=== PATIENT | female | born 1990 | race Caucasian/White ===

== ENCOUNTER 2020-07-25 07:26 | Outpatient (RCR) | payer BC ==
[~2020-07-25] VITALS: Ht 157.5 cm; Wt 72.7 kg
[2020-07-25] MEDS ORDERED: DULO60CA6 PO (12:51)
[2020-07-25] MEDS ORDERED: LORA-405 PO (12:51)
[2020-07-25] MEDS ORDERED: DICL75TA2 PO (12:51)
== END 2020-07-25 13:13 | disposition home or self-care (01) ==
LOC: PREOP 07:26
PROVIDERS: ATTEND Obstetrics & Gynecology
DX: Z01.812 Encounter for preprocedural laboratory examination (principal); N80.9 Endometriosis, unspecified

== ENCOUNTER 2020-08-02 10:10 | Day surgery (SDC) | payer BC ==
[~2020-08-02] VITALS: Ht 157.5 cm; Wt 72.7 kg
[2020-08-02] VITALS (12 sets, daily range): BP systolic 101–121; BP diastolic 55–86
[~2020-08-02 10:10] MED LIST: DICL75TA2 PO; DULO60CA6 PO; LORA-405 PO
[2020-08-02] MEDS ORDERED: LIDOCAINE/EPI 1%-1:100,000 (XYLOCAINE) 20ML ONE (10:40)
[2020-08-02] MEDS ORDERED: ceFAZolin INJECTION 1,000 MG in WATER (STERILE) FOR INJECTION 10 ML IV ONE (10:45)
[2020-08-02] MEDS: LACTATED RINGERS 1,000 ML IV PRN ×3 (11:03→16:20)
[2020-08-02 11:15] LABS: BASOPHILS % (AUTO) 0 % (0-10); EOSINOPHILS % (AUTO) 1 % (0-10); HEMATOCRIT 37 % (35-52); HEMOGLOBIN 12.5 g/dL (11.5-16.0); LYMPHOCYTES # (AUTO) 2.3 10^3/uL (1.0-4.0); LYMPHOCYTES % (AUTO) 33 % (12-44); MEAN CORPUSCULAR HEMOGLOBIN 30 pg (25-34); MEAN CORPUSCULAR HGB CONC 34 g/dL (32-36); MEAN CORPUSCULAR VOLUME 88 fL (80-99); MEAN PLATELET VOLUME 9.5 fL (9.0-12.2); MONOCYTES # (AUTO) 0.4 10^3/uL (0.0-1.0); MONOCYTES % (AUTO) 7 % (0-12); NEUTROPHILS % (AUTO) 59 % (42-75); PLATELET COUNT 244 10^3/uL (130-400); WHITE BLOOD COUNT 6.7 10^3/uL (4.3-11.0)
[2020-08-02] MEDS ORDERED: MIDAZOLAM 2 MG/2 ML (VERSED) VIAL IV ONE (11:15)
[2020-08-02] MEDS ORDERED: fentaNYL INJECTION 100 MCG/2 ML AMP ONE (11:20)
[2020-08-02] MEDS ORDERED: MIDAZOLAM 2 MG/2 ML (VERSED) VIAL ONE (11:20)
[2020-08-02] MEDS ORDERED: ONDANSETRON 4 MG/2 ML (SDV) Z0FRAN ONE (11:28)
[2020-08-02] MEDS ORDERED: NEOSTIGMINE 3 MG/3 ML VIAL ONE (11:28)
[2020-08-02] MEDS ORDERED: ROCURONIUM 10 MG/ML 5 ML SYRINGE IV ONE (11:28)
[2020-08-02] MEDS ORDERED: SEVOFLURANE (ULTANE) 15 ML INHAL SOLN ONE ×2 (11:28→14:25)
[2020-08-02] MEDS ORDERED: LIDOCAINE PF 2% 5 ML (XYLOCAINE) VIAL ONE (11:28)
[2020-08-02] MEDS ORDERED: proPOfol 200 MG/20 ML (DIPRIVAN) VIAL IV ONE (11:28)
[2020-08-02] MEDS ORDERED: GLYCOPYRROLATE 0.2 MG/ML (ROBINUL) 2 ML VIAL ONE ×2 (11:28→14:08)
[2020-08-02] MEDS ORDERED: ONDANSETRON 4 MG/2 ML (SDV) Z0FRAN IVP PRN ×3 (12:30→14:30)
[2020-08-02] MEDS ORDERED: HYDROmorphone 2 MG/ML VIAL (DILAUDID) IV ONE ×2 (12:30→14:30)
[2020-08-02] MEDS ORDERED: morphine INJ 10 MG/ML 1ML (SYR OR VIAL) IVP ONE ×2 (12:30→14:30)
--- NOTE | 2020-08-02 13:10 | Progress Note-Pre Operative ---
Pre-Operative Progress Note H&P Reviewed The H&P was reviewed, patient examined and no changes noted. Date Seen by Provider: Aug 02, 2020 Time Seen by Provider: 13:09 Date H&P Reviewed: Aug 02, 2020 Time H&P Reviewed: 13:09 Pre-Operative Diagnosis: Dysfunctional uterine bleeding/chronic pelvic pain/undesired SYDNIE COTTRELL MD Aug 02, 2020 13:10
--- NOTE | 2020-08-02 13:11 | Progress Note-Post Operative ---
Post-Operative Progess Note Surgeon (s)/Bankruptcy Attorney (s) Surgeon SYDNIE WAGONER MD Bankruptcy Attorney: Cathy Bee Pre-Operative Diagnosis Dysfunctional uterine bleeding/chronic pelvic pain/undesired NEXPLANON Post-Operative Diagnosis Same Procedure & Operative Findings Date of Procedure 08/02/20 Procedure Performed/Findings D&C/laparoscopy for treatment of endometriosis/removal of Nexplanon//Laparoscopic appendectomy /laparoscopic adhesiolysis/Aspiration of the left ovarian cyst Anesthesia Type GETA Estimated Blood Loss Estimated blood loss (mL): Minimal Specimens/Packing Specimens Removed Nexplanon from left posterior bicep/ Endometrial curetting/appendix SYDNIE WAGONER MD Aug 02, 2020 13:11
[2020-08-02] MEDS ORDERED: IBUP-1780 PO (13:13)
[2020-08-02] MEDS ORDERED: OXYC1TAB87 PO (13:13)
--- NOTE | 2020-08-02 13:14 | Discharge Inst-Surgical ---
Discharge Inst-Surgical Depart Medication/Instructions New, Converted or Re-Newed RX: RX on Chart Consults/Follow Up Patient Instructions: As directed Orders & Referrals Follow Up Appt: Call to make follow up appt. for patient in 1 week For follow-up and suture removal Activity: Rest for 24 hours, than as tolerated. Wound Care: May remove Band-Aid tomorrow. Replace as desired. Keep incisions clean and dry. Wash daily with soap and water. Please call in RX to patient pharmacy. Diet: As tolerated- shower or tub bathe as desired. No driving for 24 hours, no alcoholic beverages for 24 hours, and nothing per vagina (no tampons, douching, or intercoarse) for 2 weeks. Patient to return to the clinic as soon as possible for: Temperature greater kayla n 101F, Severe Pain, Foul discharge from incision or vagina, Excessive Bleeding (more than a period). Activity Activity as Tolerated: No Diet Discharge Diet: No Restrictions SYDNIE WAGONER MD Aug 02, 2020 13:14
[2020-08-02] MEDS ORDERED: PROMETHAZINE INJ 25 MG/ML (PHENERGAN) AMP IM ONE (13:15)
[2020-08-02] MEDS ORDERED: fentaNYL INJECTION 100 MCG/2 ML AMP IVP PRN (13:15)
[2020-08-02] MEDS ORDERED: KETOROLAC 30 MG/ML VIAL IVP ONE (13:15)
[2020-08-02] MEDS ORDERED: ESTROGENS CONJ INJECTION 25 MG in WATER (STERILE) FOR INJECTION 5 ML IV ONE (13:15)
[2020-08-02] MEDS ORDERED: D5 LR IV SOLUTION 1,000 ML IV SCH (13:15)
[2020-08-02] MEDS ORDERED: HYDROmorphone 2 MG/ML VIAL (DILAUDID) ONE (13:38)
[2020-08-02] MEDS ORDERED: KETOROLAC 30 MG/ML VIAL ONE (13:52)
[2020-08-02] MEDS ORDERED: ESTROGENS CONJ IV 25 MG/5 ML (PREMARIN) VIAL ONE (13:52)
[2020-08-02] MEDS ORDERED: WATER (STERILE) FOR INJECTION 10 ML ONE (13:52)
--- NOTE | 2020-08-02 15:31 | Anesthesia-General Post-Op ---
General Patient Condition Mental Status/LOC: Same as Preop Cardiovascular: Satisfactory Nausea/Vomiting: Absent Respiratory: Satisfactory Pain: Controlled Complications: Absent Post Op Complications Complications None Follow Up Care/Instructions Patient Instructions None needed. Anesthesia/Patient Condition Patient Condition Patient is doing well, no complaints, stable vital signs, no apparent adverse anesthesia problems. FELA DECKER DO Aug 02, 2020 15:31
--- NOTE | 2020-08-02 15:35 | NUR ---
PT ATTEMPTED TO STAND TO WALK TO BATHROOM. MIN BLOODY VAGINAL DRAINAGE NOTED. PT C/O DIZZINESS, NAUSEA. PT ASSISTED BACK TO BED.
[2020-08-02] MEDS ORDERED: ONDANSETRON 4 MG/2 ML (SDV) Z0FRAN IVP ONE (16:15)
--- NOTE | 2020-08-02 23:22 | OPERATIVE REPORT ---
DATE OF SERVICE: 08/02/2020 PREOPERATIVE DIAGNOSES: Dysfunctional uterine bleeding, pelvic pain and Nexplanon she no longer desired. POSTOPERATIVE DIAGNOSES: Dysfunctional uterine bleeding, pelvic pain and Nexplanon she no longer desired. OPERATIVE PROCEDURE: Removal of Nexplanon from the left medial biceps as well as D and C with laparoscopy for treatment of endometriosis, destruction and removal as well as aspiration of left ovarian cyst, adhesiolysis and laparoscopic appendectomy. OPERATIVE DESCRIPTION: With the patient in the supine position under satisfactory general anesthesia, she was repositioned in dorsal lithotomy position in the [facility] and prepped and draped in the usual fashion for abdominal and vaginal surgery. The urinary bladder was drained with a straight catheter. A weighted speculum placed in posterior fornix of vagina, cervix exposed and grasped anteriorly with single tooth tenaculum. Uterus sounded to 11 cm with uterine sound. Cervix was then serially dilated with Ben dilators to accommodate an 8 mm curette. The endometrial cavity was then curettaged in all 4 quadrants to a good uterine cry. That tissue was sent to pathology as endometrial curettings. A uterine manipulator was now placed and the bulb filled with 6 mL of air. The tenaculum and speculum were removed. The patient brought in low dorsal lithotomy position. A 5 mm incision was made at [place]. Veress needle was placed through that incision into the abdominal cavity and correct placement confirmed with water drop test. The abdomen was insufflated with 2.4 liters of carbon dioxide and the Veress needle was removed and replaced with a 5 mm Optiview laparoscopic/endoscopic port. The patient was placed in Trendelenburg allowing the bowel spill out of the pelvis. The abdominal wall transilluminated and ports of 12 mm and 5 mm were placed infraumbilically and suprapubically through incisions of those sizes. All incision sites were infiltrated with 0.25% Marcaine with epinephrine prior to incision. The pelvis was first examined. There were endometriosis implants, particularly in the cul-de-sac and on the left ovarian fossa. Both fallopian tubes were adherent over the round ligament on their respective sides to the broad ligament from the round ligament. There was endometriosis implants in the right ovarian fossa. There were endometriosis implants on the anterior abdominal wall near the cecum involving the end of the cecum and the appendix was somewhat tethered to that area as well. The appendix was essentially a vermiform appearing appendix, but it did appear to have some hemosiderin type deposits along the proximal third consistent with endometriosis. Decision was made to take out the appendix concurrent with rest of the procedure. The endometriosis implants in the cul-de-sac and in the ovarian fossa were touched with electrocautery to destroy them as were the endometriosis implants in both ovarian fossae. With the right side of the pelvis was addressed, then the right fallopian tube was released from its adhesions over the round ligament. There was a large simple cyst on the left ovary. This was fenestrated and straw yellow fluid was aspirated from it. There was nothing abnormal about that ovary. There were some endometriosis implants, still in the ovarian fossa on the left were touched with electrocautery and then the left fallopian tube was released from its adhesions of the round ligament as well. With the pelvis return to normal anatomy, the pelvis was irrigated and examined for hemostasis that being completed. Attention was turned to the appendix. The appendix was grasped and elevated. The mesoappendix was divided with electrocautery over to the base of the appendix ensuring hemostasis along the way. An Endo-TYLER was then placed across the base of appendix and fired, the appendix from its attachments. The appendix was placed in an Endobag and brought out through the umbilical port and sent to pathology for permanent section. The stump of the appendix was copiously irrigated and treated with several drops of Betadine solution. There was an endometriosis implant still on the anterior abdominal wall. This was sucked with electrocautery to destroy it. The cul-de-sac was irrigated and aspirated a final time. There was no bleeding. There was no abnormal remaining pathology. The procedure at this point was completed and terminated. The operative instruments were removed from the ports. The abdomen was evacuated of insufflating gas and all ports were removed under direct vision. No bleeding was noted. The skin incisions were closed with 3-0 nylon sutures. The fascia at the supraumbilical incision was closed with [id number] suture of 2-0 Vicryl. The uterine manipulator bulb was drained. The instruments were removed from the vagina. Speculum placed in vagina, cervix examined for hemostasis, which was complete. Sponge and needle counts were correct on completion of procedure. Blood loss was minimal. The patient tolerated the procedure well and was uneventfully awakened from her general anesthesia and transferred to the recovery room in stable condition with plans for discharge home PAR. Job ID: [id number] DocumentID: [id number] Dictated Date: 08/02/2020 15:06:50 Metal Pattern Maker Date: 08/02/2020 23:22:02 Dictated By: SYDNIE WAGONER MD
== END 2020-08-02 16:50 | disposition home or self-care (01) ==
LOC: SDC 10:10
PROVIDERS: ATTEND Obstetrics & Gynecology
DX: N93.8 Other specified abnormal uterine and vaginal bleeding (principal); N80.3 Endometriosis of pelvic peritoneum; N92.1 Excessive and frequent menstruation with irregular cycle; N94.12 Deep dyspareunia; N94.5 Secondary dysmenorrhea; F41.9 Anxiety disorder, unspecified; F32.9 Major depressive disorder, single episode, unspecified; Z79.899 Other long term (current) drug therapy; Z80.49 Family history of malignant neoplasm of other genital organs
CPT/HCPCS: 36415; 84703; 85025; 87081; 88304; 88305

== ENCOUNTER 2020-12-25 05:36 | Outpatient (CLI) | payer BC, OTHER ==
[~2020-12-25] VITALS: Ht 157.5 cm; Wt 81.8 kg
[~2020-12-25 05:36] MED LIST changes: +IBUP-1780 PO; +OXYC1TAB87 PO
[2020-12-25] MEDS ORDERED: DULO30CA3 PO (15:12)
[2020-12-25] MEDS ORDERED: HYDR-3584 PO (15:12)
== END 2020-12-25 15:15 | disposition home or self-care (01) ==
LOC: PREOP 05:36
PROVIDERS: ATTEND Obstetrics & Gynecology
DX: Z01.818 Encounter for other preprocedural examination (principal)

== ENCOUNTER 2021-01-01 10:55 | Day surgery (SDC) | payer BC, OTHER ==
[2021-01-01] VITALS (9 sets, daily range): BP systolic 108–130; BP diastolic 66–83
[~2021-01-01] VITALS: Ht 157.5 cm; Wt 81.8 kg
--- NOTE | 2021-01-01 09:29 | Progress Note-Post Operative ---
Post-Operative Progess Note Surgeon (s)/Switchboard Operator Supervisor (s) Surgeon SYDNIE WAGONER MD Switchboard Operator Supervisor: Billie Pre-Operative Diagnosis Chronic pelvic pain/recurrent endometriosis/menorrhagia Post-Operative Diagnosis Same with pathology pending Procedure & Operative Findings Date of Procedure 01/01/21 Procedure Performed/Findings Total laparoscopic hysterectomy with bilateral salpingectomy and Left- oophorectomy Anesthesia Type GETA Estimated Blood Loss Estimated blood loss (mL): minimal Specimens/Packing Specimens Removed Uterus fallopian tubes and Left ovary Packing: not required SYDNIE WAGONER MD January 01, 2021 09:29
--- NOTE | 2021-01-01 09:29 | Progress Note-Pre Operative ---
Pre-Operative Progress Note H&P Reviewed The H&P was reviewed, patient examined and no changes noted. Date Seen by Provider: January 01, 2021 Time Seen by Provider: 12:18 Date H&P Reviewed: January 01, 2021 Time H&P Reviewed: 12:18 Pre-Operative Diagnosis: Chronic pelvic pain/recurrent endometriosis/menorrhagia SYDNIE WAGONER MD January 01, 2021 09:29
--- NOTE | 2021-01-01 09:32 | Discharge Inst-Surgical ---
Discharge Inst-Surgical Depart Medication/Instructions New, Converted or Re-Newed RX: RX on Chart Consults/Follow Up Patient Instructions: As directed Orders & Referrals Follow Up Appt: Return to clinic on Wednesday, December 04, 2020 at 9:30 AM for staple removal Call to make follow up appt. for patient in 4 weeks. Activity: Rest for 24 hours, than as tolerated. Wound Care: May remove Band-Aid tomorrow. Replace as desired. Keep incisions clean and dry. Wash daily with soap and water. Please call in RX to patient pharmacy. Diet: As tolerated shower or tub bathe as desired. No driving for 24 hours, no alcoholic beverages for 24 hours, and nothing per vagina (no tampons, douching, or intercourse) for 8 weeks. Patient to return to the clinic as soon as possible for: Temperature greater than 101F, Severe Pain, Foul discharge from incision or vagina, Excessive Bleeding (more than a period). Activity Activity as Tolerated: No Diet Discharge Diet: No Restrictions SYDNIE WAGONER MD January 01, 2021 09:32
[~2021-01-01 10:55] MED LIST changes: +DOCU-143 PO; +DULO30CA3 PO; +HYDR-3584 PO
[2021-01-01] MEDS ORDERED: LIDOCAINE/EPI 1%-1:100,000 (XYLOCAINE) 20ML ONE (11:54)
[2021-01-01 12:00] LABS: BASOPHILS % (AUTO) 1 % (0-10); EOSINOPHILS # (AUTO) 0.1 10^3/uL (0.0-0.3); EOSINOPHILS % (AUTO) 1 % (0-10); HEMATOCRIT 39 % (35-52); HEMOGLOBIN 13.2 g/dL (11.5-16.0); LYMPHOCYTES # (AUTO) 2.6 10^3/uL (1.0-4.0); LYMPHOCYTES % (AUTO) 40 % (12-44); MEAN CORPUSCULAR HEMOGLOBIN 30 pg (25-34); MEAN CORPUSCULAR HGB CONC 34 g/dL (32-36); MEAN CORPUSCULAR VOLUME 87 fL (80-99); MEAN PLATELET VOLUME 9.4 fL (9.0-12.2); MONOCYTES # (AUTO) 0.5 10^3/uL (0.0-1.0); MONOCYTES % (AUTO) 7 % (0-12); NEUTROPHILS # (AUTO) 3.3 10^3/uL (1.8-7.8); NEUTROPHILS % (AUTO) 51 % (42-75); PLATELET COUNT 264 10^3/uL (130-400); WHITE BLOOD COUNT 6.5 10^3/uL (4.3-11.0)
[2021-01-01] MEDS ORDERED: ceFAZolin INJECTION 1,000 MG ONE (12:18)
[2021-01-01] MEDS ORDERED: WATER (STERILE) FOR INJECTION 10 ML ONE (12:18)
[2021-01-01] MEDS ORDERED: MIDAZOLAM 2 MG/2 ML (VERSED) VIAL ONE (12:20)
[2021-01-01] MEDS ORDERED: LACTATED RINGERS 1,000 ML IV ONE (12:20)
[2021-01-01] MEDS ORDERED: proPOfol 200 MG/20 ML (DIPRIVAN) VIAL IV ONE (12:20)
[2021-01-01] MEDS ORDERED: LIDOCAINE PF 2% 5 ML (XYLOCAINE) VIAL ONE (12:20)
[2021-01-01] MEDS ORDERED: ROCURONIUM 10 MG/ML 5 ML SYRINGE IV ONE (12:20)
[2021-01-01] MEDS ORDERED: ONDANSETRON 4 MG/2 ML (SDV) Z0FRAN ONE ×2 (12:20→13:59)
[2021-01-01] MEDS ORDERED: fentaNYL INJ 100 MCG/2 ML AMP ONE ×2 (12:21→15:18)
[2021-01-01] MEDS ORDERED: ceFAZolin INJECTION 1,000 MG in WATER (STERILE) FOR INJECTION 10 ML IV ONE (13:15)
[2021-01-01] MEDS ORDERED: LACTATED RINGERS 1,000 ML IV PRN (13:15)
[2021-01-01] MEDS ORDERED: SEVOFLURANE (ULTANE) 15 ML INHAL SOLN ONE ×3 (13:32→13:48)
--- NOTE | 2021-01-01 14:02 | Anesthesia-General Post-Op ---
General Patient Condition Mental Status/LOC: Same as Preop Cardiovascular: Satisfactory Nausea/Vomiting: Absent Respiratory: Satisfactory Pain: Controlled Complications: Absent Post Op Complications Complications None Follow Up Care/Instructions Patient Instructions None needed. Anesthesia/Patient Condition Patient Condition Patient is doing well, no complaints, stable vital signs, no apparent adverse anesthesia problems. No complications reported per nursing. VERITO ALCANTARA CRNA January 01, 2021 14:02
[2021-01-01] MEDS ORDERED: morphine INJ 10 MG/ML 1ML (SYR OR VIAL) ONE (14:04)
[2021-01-01] MEDS: ONDANSETRON 4 MG/2 ML (SDV) Z0FRAN IVP PRN ×2 (14:09→15:15)
[2021-01-01] MEDS ORDERED: morphine INJ 10 MG/ML 1ML (SYR OR VIAL) IVP ONE (14:15)
[2021-01-01] MEDS ORDERED: MEPERIDINE (DEMEROL) INJ 50 MG/ML IVP ONE (14:15)
[2021-01-01] MEDS ORDERED: HYDROmorphone 2 MG/ML VIAL (DILAUDID) IV ONE (14:15)
[2021-01-01] MEDS ORDERED: KETOROLAC 30 MG/ML VIAL ONE (15:18)
[2021-01-01] MEDS ORDERED: D5 LR IV SOLUTION 1,000 ML IV ONE (15:19)
[2021-01-01] MEDS: KETOROLAC 30 MG/ML VIAL IVP SCH ×2 (15:29→21:37)
[2021-01-01] MEDS: fentaNYL INJ 100 MCG/2 ML AMP IVP PRN ×2 (15:29→18:03)
[2021-01-01] MEDS ORDERED: ONDANSETRON 4 MG/2 ML (SDV) Z0FRAN IVP PRN (15:30)
[2021-01-01] MEDS ORDERED: D5 LR IV SOLUTION 1,000 ML IV SCH (15:30)
[2021-01-01] MEDS ORDERED: ESTROGENS CONJ INJECTION 25 MG in WATER (STERILE) FOR INJECTION 5 ML IV ONE (15:30)
[2021-01-01] MEDS: oxyCODONE/APAP 5/325MG (PERCOCET 5) TABLET PO PRN (19:41)
[2021-01-02 00:20] VITALS: BP 122/66
[2021-01-02] MEDS: oxyCODONE/APAP 5/325MG (PERCOCET 5) TABLET PO PRN (00:54)
--- NOTE | 2021-01-02 02:19 | OPERATIVE REPORT ---
DATE OF SERVICE: 01/01/2021 PREOPERATIVE DIAGNOSES: Chronic pelvic pain with a history of endometriosis and also menorrhagia. POSTOPERATIVE DIAGNOSES: Chronic pelvic pain with a history of endometriosis and also menorrhagia with recurrent endometriosis. OPERATIVE PROCEDURE: Total laparoscopic hysterectomy with left salpingo-oophorectomy, right salpingectomy and cystoscopy. OPERATIVE DESCRIPTION: With the patient in the supine position under satisfactory general anesthesia, she was repositioned in dorsal lithotomy position in the [facility] and prepped and draped in the usual fashion for abdominal and vaginal surgery. Urinary bladder was drained with a Jin catheter to dependent drainage. Weighted speculum placed in posterior fornix of vagina, cervix exposed and grasped anteriorly with single tooth tenaculum. Uterus sounded to 11 cm with uterine sound. The cervix was then serially dilated with Ben dilators to accommodate a Karlee II manipulator, which was placed in the usual manner with a 6 mm x 8 cm uterine probe and a 30 mm colpotomy ring. Sutures of #1 Vicryl placed at 3 and 9 o'clock position of the cervix to affix the uterus to the manipulator. The patient was now brought in low dorsal lithotomy position. The speculum and tenaculum had been removed from the vagina. A 12 mm incision was made 10 cm superior to the umbilicus. Veress needle was placed through that incision into the abdominal cavity. Correct placement confirmed with water drop test. The abdomen was insufflated with 2.4 liters of carbon dioxide and the Veress needle was removed and a 12 mm Optiview laparoscopic port placed. The abdominal wall was transilluminated and 8 mm ports were placed 8 cm lateral to the umbilicus half way between the umbilicus and the midline port. The patient was placed in Trendelenburg allowing the bowel to spill out of the pelvis. The da Danilo column was advanced on the patient and docked and operative instrument placed in right and left lateral ports and I retired to the da Danilo console. At the console using the vessel sealer on the right and bipolar fenestrated grasper on the left, the pelvis was first examined. There was evidence of endometriosis in both ovarian fossae. The left ovary had a hemosiderin deposits consistent with endometriosis. The left fallopian tube was quite distorted with endometriosis implants. Uterus was quite mottled in appearance consistent with adenomyosis as well. The right ovary had a couple of cysts, but otherwise appeared normal. The laparoscope was rotated. The appendix was surgically absent. Laparoscope was brought back to the pelvis. Using the vessel sealer, the right fallopian tube was grasped and elevated and then from the ovary in a stepwise fashion across the mesosalpinx. Once the uteroovarian pedicle was reached, that was clamped, cauterized and divided with the vessel sealer as well. Dissection was carried down across the broad ligament and across the round ligament and down onto the cardinal ligament on the right. Same procedure performed on left except that the dissection was carried under the ovary across the mesovarium in order to allow for removal of the left fallopian tube and ovary. Both ureters were seen to peristalse well away from the areas of dissection. The anterior lower ____ peritoneum was now exposed. There were extensive adhesions in that area due to her previous sections and very careful and meticulous dissection was undertaken using a monopolar shear on the right and the bipolar fenestrated grasper on the left to divide the peritoneum and dissect the bladder down off the lower uterine segment. With that done, the anterior lower uterine segment was fully exposed. Colpotomy incision was started at 12 o'clock position onto the colpotomy ring. That incision was continued circumferentially until the entire colpotomy ring was exposed, allowing for removal of the uterus with the tubes and left ovary still attached through the vagina. The vaginal cuff was closed with two sutures of V-Loc barbed suture starting from the right angle and continuing almost all the way across the left angle and then using a second suture to finish the closure and reperitonealize the vaginal cuff. Both uterine vessel pedicles were included in the closure. Pelvis was examined and hemostasis that being complete and with no abnormal pathology, the procedure was terminated. The operative instruments were removed under direct vision as were then the ports. The abdomen was evacuated of the insufflating gas in the process of removing the ports. The skin incisions were stapled after first closing the fascia at the supraumbilical incision with [id number] suture of 2-0 Vicryl. Cystoscopy was performed using LR as a distending medium. The bladder was examined. It was intact. Both ureters were identified and efflux was noted bilaterally from the ureteral orifices. The speculum was placed in the vagina. The vaginal cuff was examined. The apex of the vagina was intact and hemostatic. Sponge and needle counts were correct. Blood loss was minimal. The patient was now uneventfully awakened from her general anesthesia and transferred to the recovery room in stable condition. Job ID: [id number] DocumentID: [id number] Dictated Date: 01/01/2021 13:50:52 Towel Inspector Date: 01/01/2021 22:09:30 Dictated By: SYDNIE WAGONER MD
[2021-01-02] MEDS: KETOROLAC 30 MG/ML VIAL IVP SCH (04:52)
[2021-01-02 04:54] VITALS: BP 121/69
[2021-01-02 08:38] VITALS: BP 118/65
[2021-01-02] MEDS ORDERED: DOCUSATE SODIUM 100 MG (COLACE) CAP PO SCH (09:00)
[2021-01-02] MEDS ORDERED: ESTRADIOL 1 MG TAB (ESTRACE) PO SCH (09:00)
--- NOTE | 2021-01-02 12:42 | Progress Note ---
Standard Progress Note Progress Notes/Assess & Plan Date Seen by a Provider: January 02, 2021 Time Seen by a Provider: 08:00 Progress/Assessment & Plan This patient is without complaint. She is ambulating, voiding, tolerating oral intake well and has good pain control. Vital Signs Date Time Temp Pulse Resp B/P (MAP) Pulse Ox O2 Delivery O2 Flow Rate FiO2 01/02/21 04:54 36.7 79 16 121/69 (86) 99 Room Air 01/02/21 00:20 37.1 77 20 122/66 (84) 99 Room Air 01/01/21 19:45 36.4 86 18 129/72 (91) 99 Room Air 01/01/21 15:09 36.3 67 18 113/66 (82) 99 Room Air 01/01/21 15:00 Room Air 01/01/21 14:55 36.5 16 124/78 (93) 100 Room Air 01/01/21 14:45 OxyMask 2 01/01/21 14:45 18 123/83 (96) 98 OxyMask 2 01/01/21 14:30 15 115/75 (88) 100 OxyMask 2 01/01/21 14:25 OxyMask 3 01/01/21 14:20 21 117/74 (88) 100 OxyMask 3 01/01/21 14:10 19 128/79 (95) 100 OxyMask 5 01/01/21 14:05 OxyMask 5 01/01/21 13:56 OxyMask 10 01/01/21 13:56 36.5 16 130/80 (97) 98 OxyMask 10 I & O 01/02/21 07:00 Intake Total 4500 ml Output Total 3175 ml Balance 1325 ml Vital signs are stable. Patient is afebrile. The abdomen is benign. The surgical incisions are clean dry and intact. Extremities show no clubbing or cyanosis. There is no Homans' sign. Pelvic exam is deferred Assessment and plan Postoperative day #1 doing well. Plan is for discharge home with follow-up in clinic Final Diagnosis Chronic pelvic pain/endometriosis SYDNIE WAGONER MD January 02, 2021 12:41
[2021-01-02] MEDS ORDERED: IBUPROFEN 800 MG (MOTRIN) TAB PO SCH (15:30)
== END 2021-01-02 08:55 | disposition home or self-care (01) ==
LOC: SDC 10:55 → WS 15:05 → SDC 01-02 08:55
PROVIDERS: ATTEND Obstetrics & Gynecology
DX: N80.0 Endometriosis of uterus (principal); N92.0 Excessive and frequent menstruation with regular cycle; N83.209 Unspecified ovarian cyst, unspecified side; N80.3 Endometriosis of pelvic peritoneum; D25.2 Subserosal leiomyoma of uterus; N83.8 Other noninflammatory disorders of ovary, fallopian tube and broad ligament; E66.9 Obesity, unspecified; F17.290 Nicotine dependence, other tobacco product, uncomplicated; F41.9 Anxiety disorder, unspecified; F32.9 Major depressive disorder, single episode, unspecified; Z68.33 Body mass index [BMI] 33.0-33.9, adult; Z79.899 Other long term (current) drug therapy; Z82.49 Family history of ischemic heart disease and other diseases of the circulatory system; Z80.49 Family history of malignant neoplasm of other genital organs
CPT/HCPCS: 36415; 84703; 85025; 86850; 86900; 86901; 87081; 88307